=== PATIENT | male | born 1965 | race Caucasian/White ===

== ENCOUNTER 2025-05-14 07:22 | Emergency (ER) | payer OTHER, SELFPAY ==
[2025-05-14 07:24] VITALS: BP 153/117; PULSE 79; RESP 18; TEMP 36.9; O2SAT 97
--- NOTE | 2025-05-14 07:41 | W.ED.GENAD ---
Discharge Plan Discharge Details Chief Complaint: [facility] ED Provider: Svetlana Darby Mode of arrival: ambulatory. Date/Time Provider Initiated Documentation: 05/14/25 07:25. Limitations to Documentation: no limitations. Information obtained by: patient. HPI Narrative: 60yo M with hx of gout, prior kidney stone, presenting for severe left sided flank pain radiating down his side onset 2 hours prior to arrival. Pain feels identical to his prior stone which was 4-5 years ago. That stone passed without intervention. Urinary frequency last night, no hematuria or dysuria. Mild nausea when the pain is particularly bad; no vomiting. No testicular pain. Otherwise in his usual state of health with no fevers, chills, rash, abdominal pain, or other concerns. General Stated Complaint: [facility] CJ: 3 Review of Systems Narrative: see HPI Exam Narrative Exam Narrative: General: Alert, well appearing, well nourished Head: Normocephalic, atraumatic Neck: Trachea midline, ?Neck supple. Cardiac: ?RRR, no murmurs appreciated Resp: No respiratory distress. CTAB. Abd: ?Soft, non-distended, nontender : ?No suprapubic tenderness. No CVA tenderness. Neurologic: GCS 15. ? Moves all extremities freely against gravity Course Vital Signs Vital signs: Vital Signs Temperature 36.9 C 05/14/25 07:24 Pulse 79 05/14/25 07:24 Respiratory Rate 18 05/14/25 07:24 Blood Pressure 153/117 H 05/14/25 07:24 Pulse Oximetry 97 05/14/25 07:24 Temperature 36.9 C 05/14/25 07:24 Temperature Source Tympanic 05/14/25 07:24 Pulse 79 05/14/25 07:24 Respiratory Rate 18 05/14/25 07:24 Respiratory Effort Normal, Non-Labored 05/14/25 07:28 Respiratory Depth Normal 05/14/25 07:28 Respiratory Pattern Normal 05/14/25 07:28 Blood Pressure 153/117 H 05/14/25 07:24 Blood Pressure Position Supine 05/14/25 07:24 Pulse Oximetry 97 05/14/25 07:24 Oxygen Delivery Method Room Air 05/14/25 07:24 Oxygen Flow Rate 0 05/14/25 07:24 Pain Level 8 07/04/25 07:24 Medical Decision Making 60yo M with hx of gout, prior kidney stone, presenting for left sided flank pain identical to his prior kidney stone. Hypertensive on arrival, vital signs otherwise reassuring. Systemically well. No abdominal or CVA tenderness on exam. High level of suspicion for repeat nephrolithiasis; less likely pyelonephritits, UTI, intrabdominal process. With patient stating his symptoms are identical to prior stone would not get CT at this time. Will treat symptoms with tylenol, toradol, and zofran will awaiting results of UA and labs with plan to reassess after pain medication. Will be signed out to kemal garcia as above. [facility] Social History Smoking/Tobacco Use Status: Current-Occasional Tobacco Type: cigarettes Tobacco: How many years used: 222 Smoking risk assessment performed?: Yes Alcohol Intake: current Alcohol Intake frequency: 0-2 drinks per day Drug use: Never Substance use type: does not use Details: pt states he smokes 1 cigarette per month Housing: house Do you feel safe at home: Yes PAWSS Have you Been Recently Intoxicated or Drunk Within the Last 30 days?: No Have you Ever Experienced Previous Episodes of Alcohol Withdrawal?: No Have you ever Experienced Withdrawal Seizures?: No Have you ever Experienced Delirium Tremens(DT)s?: No Have you ever undergone Alcohol Rehabilitation Treatment (i.e, inpt ot outpatient treatment programs)?: No Have you ever Experienced Blackouts?: No Have you ever Combined Alcohol with other Downers within the last 90 days?: No Have you ever Combined Alcohol with any other Substance of Abuse during the last 90 days?: No Positive Blood Alcohol level on Presentation? [PCS.BAL]: No Evidence of Increased Autonomic Activity (i.e. HR>120, tremor, sweating, agitation, nausea)?: No Result: 0
[2025-05-14] MEDS: Ketorolac 15 MG/ML VIAL IVP (08:04)
[2025-05-14] MEDS: Ondansetron O.D.T. 4 MG TABEF PO (08:05)
[2025-05-14] MEDS: Acetaminophen 500 MG TAB 1000 MG PO (08:05)
[2025-05-14] MEDS: Tamsulosin 0.4 MG CAPCR PO (08:06)
[2025-05-14 08:07] LABS: Abs Immature Grans 0.01 10^3/uL (0.0-0.06); HCT 40.4 % (40.0-50.0); HGB 14.3 g/dL (13.5-17.5); Immature Grans % 0.2 %; MCH 31.9 pg (27.0-33.0); MCHC 35.4 % (32.0-36.0); MCV 90 fL (80-95); MPV 8.5 fL (8.0-11.0); Platelet Count 213 10^3/uL (130-400); RBC 4.48 10^6/uL (4.36-5.78); RDW 13.2 % (11.8-14.1); RDW-SD 43.0 fL; WBC 6.39 10^3/uL (4.4-10.8)
[2025-05-14 08:10] LABS: Glucose Negative (Negative)
[2025-05-14 08:14] LABS: C & S Indicated? No; WBC 0-2 HPF (0-5)
[2025-05-14 08:18] LABS: ALT 46 U/L (16-63); AST 30 U/L (15-37); Albumin 3.9 g/dL (3.4-5.0); Alkaline Phosphatase 84 U/L (46-116); Anion Gap 10.6 mmol/L (3-11); BUN 17 mg/dL (7-18); Bilirubin, Total 0.5 mg/dL (0.2-1.0); CO2 23.4 mmol/L (21.0-32.0); Calcium 8.9 mg/dL (8.5-10.1); Chloride 105 mmol/L (98-107); Estimated GFR 101.95 (mL/min/1.73m2); Glucose 106 mg/dL (74-106); Potassium 4.3 mmol/L (3.5-5.1); Sodium 139 mmol/L (136-145); Total Protein 7.4 g/dL (6.4-8.2)
[2025-05-14 08:47] VITALS: BP 167/111; PULSE 70; RESP 18; O2SAT 98
--- NOTE | 2025-05-14 09:04 | W.ED.GENAD ---
Discharge Plan Disposition Patient Disposition: Home Condition: Good Discharge Details Clinical Impression: Kidney stone [facility] Home Meds and New Rx's Prescriptions: New ketorolac 10 mg tablet 10 mg PO TID 5 Days Qty: 15 0RF tamsulosin [Flomax] 0.4 mg capsule 0.4 mg PO DAILY Qty: 10 0RF No Action allopurinol 200 mg tablet 200 mg PO BID fluticasone propionate [24 Hour Allergy Relief] 50 mcg/actuation spray,suspension 1 spray intranasal DAILY PRN Rx Instructions: administer into each nostril atorvastatin [Lipitor] 10 mg tablet 10 mg PO DAILY escitalopram oxalate 5 mg tablet 5 mg PO DAILY Zepbound 15 mg/0.5 mL pen injector 15 mg subcut QWEEK Discharge Instructions Instructions: Kidney Stone, Adult ED Additional Instructions: At this time you have evidence of a kidney stone. This is likely the cause of your symptoms. This should pass within the next 12 to 48 hours, if not earlier. Please drink plenty of fluids, 10 to 12 cups/day at least. Please add a small amount of lemon juice to every cup of water. Please take 10mg of Ketorolac every 8 hours and 1000 mg of Tylenol every 6 hours as needed for pain. These are the maximum doses of these medicines. Please take the Flomax as directed. This will help in expediting the passage of your kidney stone. If your pain stops, you can stop taking the Flomax. Please strain your urine to collect the stone. This can then be analyzed by your family doctor. If you do not have resolution of your symptoms after 48 to 72 hours please follow-up closely with your family doctor or return here for reassessment. If you notice any worsening of your symptoms, or any new symptoms such as inability to urinate, vomiting, diarrhea, fever, chills, shortness of breath, chest pain, numbness, weakness, or fainting , please return immediately to the emergency department for reevaluation. Please follow up with your primary care provider as soon as possible for reassessment and reevaluation. As always, it was a pleasure participating in your medical care today. HPI General Mode of arrival: ambulatory. Date/Time Provider Initiated Documentation: 05/14/25 07:25. Limitations to Documentation: no limitations. Information obtained by: patient. Related Data Home Medications ?Medication ?Instructions ?Recorded ?Confirmed allopurinol 200 mg tablet 200 mg PO BID 05/14/25 05/14/25 atorvastatin 10 mg tablet (Lipitor) 10 mg PO DAILY 05/14/25 05/14/25 escitalopram oxalate 5 mg tablet 5 mg PO DAILY 05/14/25 05/14/25 fluticasone propionate 50 1 spray intranasal DAILY PRN 05/14/25 05/14/25 mcg/actuation nasal spray,suspension (24 Hour Allergy Relief) ketorolac 10 mg tablet 10 mg PO TID 5 days #15 tabs 05/14/25 tamsulosin 0.4 mg capsule (Flomax) 0.4 mg PO DAILY #10 caps 05/14/25 tirzepatide (weight loss) 15 15 mg subcut QWEEK 05/14/25 05/14/25 mg/0.5 mL subcutaneous pen injector (Zepbound) Previous Rx's ?Medication ?Instructions ?Recorded ketorolac 10 mg tablet 10 mg PO TID 5 days #15 tabs 05/14/25 tamsulosin 0.4 mg capsule (Flomax) 0.4 mg PO DAILY #10 caps 05/14/25 Allergies Allergy/AdvReac Type Severity Reaction Status Date / Time No Known Allergies Allergy Unverified 05/14/25 08:00 General Stated Complaint: [facility] CJ: 3 Course Vital Signs Vital signs: Vital Signs Temperature 36.9 C 05/14/25 07:24 Pulse 79 05/14/25 07:24 Respiratory Rate 18 05/14/25 07:24 Blood Pressure 153/117 H 05/14/25 07:24 Pulse Oximetry 97 05/14/25 07:24 Temperature 36.9 C 05/14/25 07:24 Temperature Source Tympanic 05/14/25 07:24 Pulse 70 05/14/25 08:47 Respiratory Rate 18 05/14/25 08:47 Respiratory Effort Normal, Non-Labored 05/14/25 07:28 Respiratory Depth Normal 05/14/25 07:28 Respiratory Pattern Normal 05/14/25 07:28 Blood Pressure 167/111 H 05/14/25 08:47 Blood Pressure Mean 129 05/14/25 08:47 Blood Pressure Position Supine 05/14/25 07:24 Pulse Oximetry 98 05/14/25 08:47 Oxygen Delivery Method Room Air 05/14/25 08:47 Oxygen Flow Rate 0 05/14/25 08:47 Pain Level 2 05/14/25 08:47 Lab/Test Results Lab/Test Results: Laboratory Tests Range/Units 05/14/25 05/14/25 07:35 07:55 WBC (4.4-10.8) 10^3/uL 6.39 RBC (4.36-5.78) 10^6/uL 4.48 Hgb (13.5-17.5) g/dL 14.3 Hct (40.0-50.0) % 40.4 MCV (80-95) fL 90 MCH (27.0-33.0) pg 31.9 MCHC (32.0-36.0) % 35.4 RDW (11.8-14.1) % 13.2 Plt Count (130-400) 10^3/uL 213 MPV (8.0-11.0) fL 8.5 Immature Gran % % 0.2 Neutrophils % % 46.5 Lymphocytes % % 42.1 Monocytes % % 9.1 Eosinophils % % 1.6 Basophils % % 0.5 Nucleated RBC % (0.0-0.3) % 0.0 Absolute Neutrophils (1.2-6.7) 10^3/uL 2.98 Absolute Lymphocytes (1.2-3.4) 10^3/uL 2.69 Absolute Monocytes (0.1-0.8) 10^3/uL 0.58 Absolute Eosinophils (0.0-0.7) 10^3/uL 0.10 Absolute Basophils (0.0-0.2) 10^3/uL 0.03 Sodium (136-145) mmol/L 139 Potassium (3.5-5.1) mmol/L 4.3 Chloride (98-107) mmol/L 105 Carbon Dioxide (21.0-32.0) mmol/L 23.4 Anion Gap (3-11) mmol/L 10.6 BUN (7-18) mg/dL 17 Creatinine (0.70-1.30) mg/dL 0.8 Est GFR (CKD-EPI 2020) (mL/min/1.73m2) 101.95 Glucose (74-106) mg/dL 106 Calcium (8.5-10.1) mg/dL 8.9 Total Bilirubin (0.2-1.0) mg/dL 0.5 AST (15-37) U/L 30 ALT (16-63) U/L 46 Alkaline Phosphatase (46-116) U/L 84 Total Protein (6.4-8.2) g/dL 7.4 Albumin (3.4-5.0) g/dL 3.9 Urine Color (Yellow) Yellow Urine Clarity (Clear) Clear Urine pH (5-8) 5.5 Ur Specific [place] (1.005-1.025) 1.020 Urine Protein (Neg-Trace) mg/dL Negative Urine Ketones (Negative) mg/dL Negative Urine Blood (Negative) Moderate H Urine Nitrite (Negative) Negative Urine Bilirubin (Negative) Negative Urine Urobilinogen (Up to 0.2) mg/dL 0.2 Ur Leukocyte Esterase (Negative) Negative Urine RBC (0-2) HPF 10-20 H Urine WBC (0-5) HPF 0-2 Ur Epithelial Cells (Negative) HPF Rare Urine Crystals (Negative) HPF Negative Urine Bacteria (Negative) HPF Few Urine Casts (Negative) LPF Negative Urine Mucus (Negative) Trace Ur Culture Indicated? No Urine Glucose (Negative) mg/dL Negative PFSH All Active Problems (Updated 05/14/25 @ 09:05 by Eleazar George DO) Kidney stone (Chronic) Social History Smoking/Tobacco Use Status: Current-Occasional Tobacco Type: cigarettes Tobacco: How many years used: 222 Smoking risk assessment performed?: Yes Alcohol Intake: current Alcohol Intake frequency: 0-2 drinks per day Drug use: Never Substance use type: does not use Details: pt states he smokes 1 cigarette per month Housing: house Do you feel safe at home: Yes PAWSS Have you Been Recently Intoxicated or Drunk Within the Last 30 days?: No Have you Ever Experienced Previous Episodes of Alcohol Withdrawal?: No Have you ever Experienced Withdrawal Seizures?: No Have you ever Experienced Delirium Tremens(DT)s?: No Have you ever undergone Alcohol Rehabilitation Treatment (i.e, inpt ot outpatient treatment programs)?: No Have you ever Experienced Blackouts?: No Have you ever Combined Alcohol with other Downers within the last 90 days?: No Have you ever Combined Alcohol with any other Substance of Abuse during the last 90 days?: No Positive Blood Alcohol level on Presentation? [PCS.BAL]: No Evidence of Increased Autonomic Activity (i.e. HR>120, tremor, sweating, agitation, nausea)?: No Result: 0
[2025-05-14] MEDS: Ketorolac 10 MG TAB 50 MG PO (09:24)
[2025-05-14] MEDS: Tamsulosin 0.4 MG CAPCR 0.8 MG PO (09:25)
[2025-05-14] MEDS: Ondansetron O.D.T. 4 MG TABEF, 3 TABS/BTL PO (09:25)
--- NOTE | 2025-05-14 15:28 | W.EDPROG ---
Date of service: 05/14/25 Time of Service: 15:28 Medical Decision Making Patient was signed out pending reassessment. Patient's laboratory workup has returned and shows no renal dysfunction, no white count or bandemia or left shift, urinalysis shows no white cells leuk esterase or nitrates. Patient has near complete resolution of pain after Toradol, Flomax, and Ofirmev. Symptoms appear consistent with kidney stone. I did discuss imaging options for the patient and at this time through notable discussion, weighing the risks and benefits, and a shared decision making process the patient has refused imaging at this time. Patient is of an appropriate age to make decisions. The patient is of sound mind, appears clinically sober, and has capacity to make decisions by my clinical exam. Respecting the patient's wishes we will hold off on imaging. Patient will be discharged home with Toradol Flomax and Tylenol. Patient will return if symptoms worsen. He will be given straining kit. Discussed red flags for which to return. I have extensively reviewed the treatment plan and discharge instructions with the patient. I have addressed all patient concerns at this time. The patient was made aware of what symptoms to monitor for that would warrant a return to the emergency department. Discussed the plan with the patient, they demonstrate verbal understanding and agreement with our assessment and plan at this time. The documentation in this chart was dictated using [employer] dictation software. Please excuse any dictation errors. She is Discharge Plan Disposition Patient Disposition: Home Condition: Good Discharge Details Clinical Impression: Kidney stone [facility] George Home Meds and New Rx's Prescriptions: New ketorolac 10 mg tablet 10 mg PO TID 5 Days Qty: 15 0RF tamsulosin [Flomax] 0.4 mg capsule 0.4 mg PO DAILY Qty: 10 0RF No Action allopurinol 200 mg tablet 200 mg PO BID fluticasone propionate [24 Hour Allergy Relief] 50 mcg/actuation spray,suspension 1 spray intranasal DAILY PRN Rx Instructions: administer into each nostril atorvastatin [Lipitor] 10 mg tablet 10 mg PO DAILY escitalopram oxalate 5 mg tablet 5 mg PO DAILY Zepbound 15 mg/0.5 mL pen injector 15 mg subcut QWEEK Discharge Instructions Instructions: Kidney Stone, Adult ED Additional Instructions: At this time you have evidence of a kidney stone. This is likely the cause of your symptoms. This should pass within the next 12 to 48 hours, if not earlier. Please drink plenty of fluids, 10 to 12 cups/day at least. Please add a small amount of lemon juice to every cup of water. Please take 10mg of Ketorolac every 8 hours and 1000 mg of Tylenol every 6 hours as needed for pain. These are the maximum doses of these medicines. Please take the Flomax as directed. This will help in expediting the passage of your kidney stone. If your pain stops, you can stop taking the Flomax. Please strain your urine to collect the stone. This can then be analyzed by your family doctor. If you do not have resolution of your symptoms after 48 to 72 hours please follow-up closely with your family doctor or return here for reassessment. If you notice any worsening of your symptoms, or any new symptoms such as inability to urinate, vomiting, diarrhea, fever, chills, shortness of breath, chest pain, numbness, weakness, or fainting , please return immediately to the emergency department for reevaluation. Please follow up with your primary care provider as soon as possible for reassessment and reevaluation. As always, it was a pleasure participating in your medical care today. Discharge Data Discharge Date/Time-TO BE ENTERED AT DEPARTURE: 05/14/25 09:32
== END 2025-05-14 09:32 | disposition home or self-care (01) ==
PROVIDERS: Student in an Organized Health Care Education/Training Program; Emergency Provider Student in an Organized Health Care Education/Training Program
DX: N20.0 Calculus of kidney (principal)
CPT/HCPCS: 00123; 36415; 80053; 96372; 99284; 81003; 81015; 85025; 99283; J1885